=== PATIENT | male | born 1990 | race Caucasian/White ===

== ENCOUNTER 2018-11-07 09:17 | Emergency (ER) | payer BC ==
[~2018-11-07] VITALS: Ht 182.9 cm; Wt 102.1 kg
--- NOTE | 2018-11-07 09:48 | RAD ---
Chest, PA and Lateral: Technique: PA and lateral views of the chest were obtained. History: Chest pain. Comparison: None. Findings: The cardiomediastinal silhouette grossly appears unremarkable. Mild prominent bilateral perihilar interstitial lung markings probably mild bronchitis. No evidence of pleural effusion. IMPRESSION: Mild prominent bilateral perihilar interstitial lung markings probably mild bronchitis. Electronically signed by: Terry Avila MD (11/07/2018 9:45 AM) [place] [id number]
--- NOTE | 2018-11-07 09:55 | EKG ---
[facility] [address] [place] [address] Test Date: 2018-11-07 Test Time: 09:23:48 Pat Name: RADHA DUEÑAS Department: Room: Gender: M [address] [place]: : 1990 Requested By: BOZENA RANDHAWA Order Number: [id number] Reading MD: Measurements Intervals [place] Rate: 83 P: 34 [place]: 142 QRS: 6 QRSD: 96 T: 11 QT: 348 QTc: 409 Interpretive Statements SINUS RHYTHM INCOMPLETE RIGHT BUNDLE BRANCH BLOCK NO SPECIFIC ECG ABNORMALITIES RI6.01 No previous ECG available for comparison
--- NOTE | 2018-11-07 10:52 | PHYS DOC ---
Past Medical History Past Medical History: No Pertinent History, Cancer, Other Additional Past Medical Histor: NEUROBLASTOMA/CHEMO Past Surgical History: Other Additional Past Surgical Histo: BX ABDOMEN/NEUROBLASTOMA,PAC PLACEMENT/REMOVAL Additional Information: 1.5 PPD Alcohol Use: Heavy Additional Information: DRINKS 1/2 TO 1 PINT [place]ISKEY DAILY Drug Use: None, Other Social History Narrative: QUIT YEARS AGO Adult General Chief Complaint Chief Complaint: CHEST WALL PAIN HPI HPI Patient is a 28 year old male presented to ER today for evaluation of cough, chest pain with cough or taking a deep breath for about one month. Patient is a smoker. Patient had no history of heart problem, no history of diabetic, no history hypertension. Patient denies any recent travel or operation. Patient denies any history of blood clot disorder. Review of Systems Review of Systems Constitutional: Denies fever or chills [] Eyes: Denies change in visual acuity, redness, or eye pain [] HENT: Denies nasal congestion or sore throat [] Respiratory: positive for cough and shortness of breath [] Cardiovascular: No additional information not addressed in HPI [] GI: Denies abdominal pain, nausea, vomiting, bloody stools or diarrhea [] : Denies dysuria or hematuria [] Musculoskeletal: Denies back pain or joint pain [] Integument: Denies rash or skin lesions [] Neurologic: Denies headache, focal weakness or sensory changes [] Endocrine: Denies polyuria or polydipsia [] All other systems were reviewed and found to be within normal limits, except as documented in this note. Allergies Allergies Allergies Coded Allergies Type Severity Reaction Last Updated Verified No Known Drug Allergies 11/07/18 No Physical Exam Physical Exam Constitutional: Well developed, well nourished, no acute distress, non-toxic appearance. [] HENT: Normocephalic, atraumatic, bilateral external ears normal, oropharynx moist, no oral exudates, nose normal. [] Eyes: PERRLA, EOMI, conjunctiva normal, no discharge. [] Neck: Normal range of motion, no tenderness, supple, no stridor. [] Cardiovascular:Heart rate regular rhythm, no murmur [] Lungs & Thorax: Bilateral breath sounds clear to auscultation [] Abdomen: Bowel sounds normal, soft, no tenderness, no masses, no pulsatile masses. [] Skin: Warm, dry, no erythema, no rash. [] Back: No tenderness, no CVA tenderness. [] Extremities: No tenderness, no cyanosis, no clubbing, ROM intact, no edema. [] Neurologic: Alert and oriented X 3, normal motor function, normal sensory function, no focal deficits noted. [] Psychologic: Affect normal, judgement normal, mood normal. [] Current Patient Data Vital Signs Vital Signs Date Time Temp Pulse Resp B/P (MAP) Pulse Ox O2 Delivery O2 Flow Rate FiO2 11/07/18 11:12 74 16 148/92 (110) 98 Room Air 11/07/18 09:20 98.1 98.1 EKG EKG ekg rate of 83 bpm, no stemi, sinus rhythm[] Radiology/Procedures Radiology/Procedures [][facility] [address] [place] [address] IMAGING REPORT Signed PATIENT: RADHA DUEÑAS ACCOUNT: [id number] : 1990 LOCATION: ER AGE: 28 SEX: M EXAM STATUS: PRE ER ORD. PHYSICIAN: BOZENA RANDHAWA DO REASON: LEFT SIDED CHEST PAIN, COUGH X 1 MONTH PROCEDURE: CHEST PA & LATERAL Chest, PA and Lateral: Technique: PA and lateral views of the chest were obtained. History: Chest pain. Comparison: None. Findings: The cardiomediastinal silhouette grossly appears unremarkable. Mild prominent bilateral perihilar interstitial lung markings probably mild bronchitis. No evidence of pleural effusion. IMPRESSION: Mild prominent bilateral perihilar interstitial lung markings probably mild bronchitis. Electronically signed by: Terry Avila MD (11/07/2018 9:45 AM) [facility] DICTATED and SIGNED BY: TERRY AVILA MD DATE: 11/07/18 0945 Course & Med Decision Making Course & Med Decision Making Pertinent Labs and Imaging studies reviewed. (See chart for details) [] Dragon Disclaimer Dragon Disclaimer This electronic medical record was generated, in whole or in part, using a voice recognition dictation system. Departure Departure Impression: Primary Impression: Bronchitis Additional Impression: Chest pain, musculoskeletal Disposition: 01 HOME, SELF-CARE Condition: STABLE Referrals: NO PCP (PCP) follow up with your pcp as needed Patient Instructions: Bronchitis, Chest Wall Pain Scripts Prednisone (PREDNISONE) 20 Mg Tablet 1 TAB PO DAILY, #10 TAB Prov: BOZENA RANDHAWA DO 11/07/18 Problem Qualifiers BOZENA RANDHAWA DO Nov 07, 2018 10:52
[2018-11-07] MEDS ORDERED: PRED20TA PO (11:01)
[2018-11-07 11:12] VITALS: BP 148/92
== END 2018-11-07 11:18 | disposition home or self-care (01) ==
LOC: ER 09:17
DX: J40 Bronchitis, not specified as acute or chronic (principal); R07.89 Other chest pain; F17.200 Nicotine dependence, unspecified, uncomplicated; F10.20 Alcohol dependence, uncomplicated; Y90.9 Presence of alcohol in blood, level not specified
CPT/HCPCS: 71046; 93005; 99284

== ENCOUNTER 2018-11-21 09:28 | Emergency (ER) | payer BC ==
[~2018-11-21] VITALS: Ht 182.9 cm; Wt 102.1 kg
[~2018-11-21 09:28] MED LIST: PRED20TA PO
--- NOTE | 2018-11-21 10:30 | RAD ---
Chest, PA and Lateral: Technique: PA and lateral views of the chest were obtained. History: Cough, shortness of breath. Comparison: 11/07/2018. Findings: The heart and pulmonary vasculature appear within normal limits. The lungs are clear. The pleural margins are clear. Impression: No acute chest process is seen. Electronically signed by: Terry Avila MD (11/21/2018 10:27 AM) [facility]
--- NOTE | 2018-11-21 10:34 | PHYS DOC ---
Past Medical History Past Medical History: Cancer, Other Additional Past Medical Histor: NEUROBLASTOMA/CHEMO Past Surgical History: Other Additional Past Surgical Histo: BX ABDOMEN/NEUROBLASTOMA,PAC PLACEMENT/REMOVAL Alcohol Use: Heavy Drug Use: None, Other Adult General Chief Complaint Chief Complaint: RECTAL BLEED [facility] HPI Patient is a 28 year old male who presents with complaining of rectal bleeding and shortness of breath and back pain. Patient complaining of episodes of bright his blood after having an appointment for the last 3 days with marked rectal pain without abdominal pain, dizziness, see and vomiting, other bleeding. Patient denies history of rectal bleeding. Patient states he usually doesn't have constipation or diarrhea but for the last 3 days he had mild diarrhea. Patient also states he had cough and shortness of breath and was seen in this emergency room 2 weeks ago and treated with Medrol Dosepak without improvement of his condition. Patient complaining of chest pain, fever and chills, productive cough. Patient also complaining of chronic low back pain for more than 6 months and states he is getting worse with cough. Patient asking for work excuse. Review of Systems Review of Systems Constitutional: Denies fever or chills [] Eyes: Denies change in visual acuity, redness, or eye pain [] HENT: Denies nasal congestion or sore throat [] Respiratory: Reports cough and shortness of breath Cardiovascular: No additional information not addressed in HPI [] GI: Denies abdominal pain, nausea, vomiting, bloody stools or diarrhea [] : Denies dysuria or hematuria [] Musculoskeletal: Reports back pain, denies joint pain [] Integument: Denies rash or skin lesions [] Neurologic: Denies headache, focal weakness or sensory changes [] Endocrine: Denies polyuria or polydipsia [] All other systems were reviewed and found to be within normal limits, except as documented in this note. Allergies Allergies Allergies Coded Allergies Type Severity Reaction Last Updated Verified No Known Drug Allergies 11/07/18 No Physical Exam Physical Exam Constitutional: Well nourished, no acute distress, non-toxic appearance. [] HENT: Normocephalic, atraumatic, oropharynx moist. Eyes: PERRLA, EOMI, conjunctiva normal, no discharge. [] Neck: Normal range of motion, no tenderness, supple, no stridor. [] Cardiovascular:Heart rate regular rhythm, no murmur [] Lungs & Thorax: Bilateral breath sounds clear to auscultation [] Abdomen: Bowel sounds normal, soft, no tenderness, no masses, no pulsatile masses. 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 [] Back: No tenderness, no CVA tenderness. [] Extremities: No tenderness, no cyanosis, no clubbing, ROM intact, no edema. [] Neurologic: Alert and oriented X 3, normal motor function, normal sensory function, no focal deficits noted. [] Psychologic: Affect and chest, judgement normal, mood normal. [] Current Patient Data Vital Signs Vital Signs Date Time Temp Pulse Resp B/P (MAP) Pulse Ox O2 Delivery O2 Flow Rate FiO2 11/21/18 12:00 80 141/75 (97) 11/21/18 10:28 97.5 20 96 Room Air 97.5 Lab Values Laboratory Tests Test 11/21/18 10:02 11/21/18 10:30 11/21/18 10:50 White Blood Count 8.3 x10^3/uL (4.0-11.0) Red Blood Count 4.90 x10^6/uL (4.30-5.70) Hemoglobin 15.8 g/dL (13.0-17.5) Hematocrit 45.6 % (39.0-53.0) Mean Corpuscular Volume 93 fL (79-100) Mean Corpuscular Hemoglobin 32 pg (25-35) Mean Corpuscular Hemoglobin Concent 35 g/dL (31-37) Red Cell Distribution Width 13.2 % (11.5-14.5) Platelet Count 252 x10^3/uL (140-400) Sodium Level 138 mmol/L (136-145) Potassium Level 3.6 mmol/L (3.5-5.1) Chloride Level 101 mmol/L (98-107) Carbon Dioxide Level 25 mmol/L (21-32) Anion Gap 12 (6-14) Blood Urea Nitrogen 21 mg/dL (8-26) Creatinine 0.8 mg/dL (0.7-1.3) Estimated GFR (Cockcroft-Gault) 115.1 Glucose Level 94 mg/dL (70-99) Calcium Level 8.8 mg/dL (8.5-10.1) Magnesium Level 2.2 mg/dL (1.8-2.4) Total Bilirubin 0.4 mg/dL (0.2-1.0) Direct Bilirubin 0.2 mg/dL (0.0-0.2) Aspartate Amino Transferase (AST) 37 U/L (15-37) Alanine Aminotransferase (ALT) 94 U/L (16-63) H Alkaline Phosphatase 63 U/L (46-116) Total Protein 7.4 g/dL (6.4-8.2) Albumin 4.0 g/dL (3.4-5.0) Ethyl Alcohol Level 102 mg/dL (0-10) H Stool Occult Blood Negative (NEG) Laboratory Tests 11/21/18 10:02 Laboratory Tests 11/21/18 10:30 EKG EKG [] Radiology/Procedures Radiology/Procedures [] Course & Med Decision Making Course & Med Decision Making Pertinent Labs and Imaging studies reviewed. (See chart for details) Evaluation of patient in ER showed 28-year-old male patient presented to ER with complaining of chronic back pain and cough and rectal bleeding. Patient had unremarkable physical exam except for a smell of alcohol on breath. Patient later on complaining of suicidal ideation without any plan and PAT team was consulted and evaluated the patient. Patient did not have criteria for inpatient treatment and was advised to follow up with his outpatient mental health clinic. Treatment for bronchitis was given. Patient did not have rectal bleeding or abnormal anal exam. Dragon Disclaimer Dragon Disclaimer This electronic medical record was generated, in whole or in part, using a voice recognition dictation system. Departure Departure Impression: Primary Impression: Cough Additional Impressions: Bronchitis Alcohol abuse Suicidal thoughts Feared condition not demonstrated Disposition: HOME, SELF-CARE (at 1201) Condition: STABLE Referrals: NO PCP (PCP) Patient Instructions: Alcohol Problems, Bronchitis, Smoking Cessation, Tips For Success, Suicidal Feelings, How to Help Yourself Additional Instructions: Drink plenty of liquids Follow-up with your primary care physician in 3-5 days Return to ER if not getting better Follow[facility] days Scripts Azithromycin (ZITHROMAX) 250 Mg Tablet 1 PKG PO UD for infection, #1 PKG Prov: MJ LAGUNA MD 11/21/18 Benzonatate (TESSALON PERLE) 100 Mg Capsule 1 CAP PO TID for cough, #21 CAP Prov: MJ LAGUNA MD 11/21/18 Problem Qualifiers MJ LAGUNA MD Nov 21, 2018 10:34
[2018-11-21 10:48] LABS: HEMATOCRIT 45.6 % (39.0-53.0); HEMOGLOBIN 15.8 g/dL (13.0-17.5); RED BLOOD COUNT 4.9 x10^6/uL (4.30-5.70); RED CELL DISTRIBUTION WIDTH 13.2 % (11.5-14.5); WHITE BLOOD COUNT 8.3 x10^3/uL (4.0-11.0)
[2018-11-21 11:05] LABS: CALCIUM 8.8 mg/dL (8.5-10.1); CREATININE 0.8 mg/dL (0.7-1.3); GFR 115.1; POTASSIUM 3.6 mmol/L (3.5-5.1)
[2018-11-21 11:06] LABS: FECAL OB PT NEGATIVE (NEG)
[2018-11-21 11:10] LABS: DIRECT BILIRUBIN 0.2 mg/dL (0.0-0.2); MAGNESIUM 2.2 mg/dL (1.8-2.4); TOTAL BILIRUBIN 0.4 mg/dL (0.2-1.0); TOTAL PROTEIN 7.4 g/dL (6.4-8.2)
[2018-11-21 12:00] VITALS: BP 141/75
[2018-11-21] MEDS ORDERED: BENZ100C PO (12:03)
[2018-11-21] MEDS ORDERED: AZIT250T PO (12:03)
== END 2018-11-21 12:18 | disposition home or self-care (01) ==
LOC: ER 09:28
DX: J40 Bronchitis, not specified as acute or chronic (principal); R45.851 Suicidal ideations; F10.20 Alcohol dependence, uncomplicated; Y90.9 Presence of alcohol in blood, level not specified; K62.5 Hemorrhage of anus and rectum; M54.5 Low back pain; G89.29 Other chronic pain; R50.9 Fever, unspecified
CPT/HCPCS: 36415; 71046; 80048; 80076; 82274; 83735; 85027; 99285; G0480

== ENCOUNTER 2020-03-29 09:11 | Emergency (ER) | payer BC ==
[~2020-03-29] VITALS: Ht 177.8 cm; Wt 113.0 kg
[~2020-03-29 09:11] MED LIST changes: +AZIT250T PO; +BENZ100C PO
[2020-03-29 10:16] LABS: BILIRUBIN,URINE NEGATIVE (NEG); CLARITY,URINE CLEAR; COLOR,URINE YELLOW; NITRITE,URINE NEGATIVE (NEG); PROTEIN,URINE NEGATIVE (NEG-TRACE); UROBILINOGEN,URINE 0.2 mg/dL (0.2 mg/dL)
[2020-03-29 10:35] LABS: BACTERIA,URINE 0 /HPF (0-FEW); RBC,URINE 0 /HPF (0-2); WBC,URINE OCC /HPF (0-4)
[2020-03-29 11:17] LABS: BASO # 0.1 x10^3/uL (0.0-0.2); BASO % 1 % (0-3); EOS # 0.1 x10^3/uL (0.0-0.7); EOS % 1 % (0-3); HEMATOCRIT 42.1 % (39.0-53.0); HEMOGLOBIN 14.9 g/dL (13.0-17.5); LYMPH # 1.6 x10^3/uL (1.0-4.8); LYMPH % 19 % (24-48); MEAN CORPUSCULAR HEMOGLOBIN 32 pg (25-35); MEAN CORPUSCULAR HGB CONC 36 g/dL (31-37); MEAN CORPUSCULAR VOLUME 89 fL (79-100); MONO # 0.5 x10^3/uL (0.0-1.1); MONO % 6 % (0-9); NEUT # 6.1 x10^3/uL (1.8-7.7); NEUT % 73 % (31-73); PLATELET COUNT 275 x10^3/uL (140-400); RED BLOOD COUNT 4.71 x10^6/uL (4.30-5.70); RED CELL DISTRIBUTION WIDTH 13.1 % (11.5-14.5); WHITE BLOOD COUNT 8.3 x10^3/uL (4.0-11.0)
[2020-03-29 11:24] LABS: CREATININE 0.9 mg/dL (0.7-1.3); GFR 99.8; POTASSIUM 3.8 mmol/L (3.5-5.1)
[2020-03-29 11:29] LABS: ALBUMIN/GLOBULIN RATIO 1.2 (1.0-1.7); TOTAL BILIRUBIN 0.3 mg/dL (0.2-1.0); TOTAL PROTEIN 7.4 g/dL (6.4-8.2)
[2020-03-29] MEDS ORDERED: CONTRAST GIVEN. MC PRN (12:00)
--- NOTE | 2020-03-29 12:14 | RAD ---
EXAM: CT Abdomen and Pelvis with IV contrast INDICATION: Reason: abdominal pain / Spl. Instructions: IV OMNI 300 75 MLS / History: TECHNIQUE: Multi-detector row CT images were acquired from the lung bases through the abdomen and pelvis with the use of IV contrast. Sagittal and coronal images were acquired from the transaxial data. All CT scans performed at this facility utilize dose optimization techniques as appropriate to the exam, including the following: Automated exposure control and adjustment of the mA and/or KV according to patient size (this includes techniques or standardized protocols for targeted exams where dose is indication/reason for exam). IV CONTRAST: Administered ORAL CONTRAST: Not administered COMPARISON: None FINDINGS: LOWER CHEST: Unremarkable LIVER: Unremarkable BILIARY SYSTEM: Gallbladder is unremarkable. Bile ducts are not dilated. PANCREAS: Unremarkable SPLEEN: Unremarkable ADRENALS: Unremarkable KIDNEYS & URETERS: Multiple renal cortical cysts are present, largest in the superior pole right kidney measuring 1.7 cm, largest in the midpole left kidney measuring 1.8 cm. These require no additional imaging evaluation. BLADDER: Unremarkable REPRODUCTIVE ORGANS: Unremarkable GASTROINTESTINAL: There is mild diffuse spasm to the large bowel. Otherwise the stomach, small bowel, and colon are unremarkable. The appendix is normal. MESENTERY/PERITONEUM/RETROPERITONEUM: Unremarkable VASCULAR: Unremarkable LYMPH NODES: No adenopathy OSSEOUS & SOFT TISSUES: Unremarkable IMPRESSION: No acute pathology shown in the abdomen or pelvis on CT. Electronically signed by: Igor Mccullough MD (03/29/2020 12:11 PM) [id number]
[2020-03-29] MEDS ORDERED: IOHEXOL 300 MG/ML 100ML VIAL. IV ONE (12:30)
[2020-03-29] MEDS ORDERED: ONDANSETRON PF 4 MG/2 ML VIAL. IVP ONE (12:45)
[2020-03-29 13:30] VITALS: BP 151/75
--- NOTE | 2020-03-29 13:44 | PHYS DOC ---
Past Medical History Past Medical History: Cancer, Other Additional Past Medical Histor: NEUROBLASTOMA/CHEMO Past Surgical History: Other Additional Past Surgical Histo: BX ABDOMEN/NEUROBLASTOMA,PAC PLACEMENT/REMOVAL Smoking Status: Current Every Day Smoker Alcohol Use: Heavy Drug Use: None General Adult EDM: Chief Complaint: ABDOMINAL PAIN HPI: HPI: Patient is a 29 year old male presented to ER today for nausea vomiting, diarrhea, abdominal pain since yesterday. Patient is an alcoholic, he tried to stop drinking, he is taking Antabuse but he continued to drink a little bit. Patient denies fever, no bloody stool. Patient denies any chest pain, no trouble breathing. Review of Systems: Review of Systems: Constitutional: Denies fever or chills. [] Eyes: Denies change in visual acuity. [] HENT: Denies nasal congestion or sore throat. [] Respiratory: Denies cough or shortness of breath. [] Cardiovascular: Denies chest pain or edema. [] GI: Positive for abdominal pain, nausea vomiting, diarrhea : Denies dysuria. [] Musculoskeletal: Denies back pain or joint pain. [] Integument: Denies rash. [] Neurologic: Denies headache, focal weakness or sensory changes. [] Endocrine: Denies polyuria or polydipsia. [] Lymphatic: Denies swollen glands. [] Psychiatric: Denies depression or anxiety. No SI no HI. Heart Score: Risk Factors: Risk Factors: DM, Current or recent (<one month) smoker, HTN, HLP, family history of CAD, obesity. Risk Scores: Score 0 - 3: 2.5% MACE over next 6 weeks - Discharge Home Score 4 - 6: 20.3% MACE over next 6 weeks - Admit for Clinical Observation Score 7 - 10: 72.7% MACE over next 6 weeks - Early Invasive Strategies Current Medications: Current Medications Medications (Trade) Dose Ordered Sig/Don Start Time Stop Time Status Last Admin Dose Admin Info (CONTRAST GIVEN -- Rx MONITORING) 1 each PRN DAILY PRN 03/29/20 12:00 03/31/20 11:59 Iohexol (Omnipaque 300 Mg/ml) 75 ml 1X ONCE 03/29/20 12:30 03/29/20 12:31 DC 03/29/20 12:02 75 ML Ondansetron HCl (Zofran) 4 mg 1X ONCE 03/29/20 12:45 03/29/20 12:46 DC 03/29/20 12:45 4 MG Allergies: Allergies: Allergies Coded Allergies Type Severity Reaction Last Updated Verified No Known Drug Allergies 11/07/18 No Physical Exam: PE: Constitutional: Well developed, well nourished, no acute distress, non-toxic appearance. [] HENT: Normocephalic, atraumatic, bilateral external ears normal, oropharynx moist, no oral exudates, nose normal. [] Eyes: PERRLA, EOMI, conjunctiva normal, no discharge. [] Neck: Normal range of motion, no tenderness, supple, no stridor. [] Cardiovascular:Heart rate regular rhythm, no murmur [] Lungs & Thorax: Bilateral breath sounds clear to auscultation [] Abdomen: Bowel sounds normal, soft, no tenderness, no masses, no pulsatile masses. [] Skin: Warm, dry, no erythema, no rash. [] Back: No tenderness, no CVA tenderness. [] Extremities: No tenderness, no cyanosis, no clubbing, ROM intact, no edema. [] Neurologic: Alert and oriented X 3, normal motor function, normal sensory function, no focal deficits noted. [] Psychologic: Affect normal, judgement normal, mood normal. [] Current Patient Data: Labs: Laboratory Tests Test 03/29/20 09:41 03/29/20 11:06 Urine Collection Type Unknown Urine Color Yellow Urine Clarity Clear Urine pH 8.0 (<5.0-8.0) Urine Specific [place] 1.025 (1.000-1.030) Urine Protein Negative mg/dL (NEG-TRACE) Urine Glucose (UA) Negative mg/dL (NEG) Urine Ketones (Stick) Negative mg/dL (NEG) Urine Blood Negative (NEG) Urine Nitrite Negative (NEG) Urine Bilirubin Negative (NEG) Urine Urobilinogen Dipstick 0.2 mg/dL (0.2 mg/dL) Urine Leukocyte Esterase Negative (NEG) Urine RBC 0 /HPF (0-2) Urine WBC Occ /HPF (0-4) Urine Bacteria 0 /HPF (0-FEW) Urine Mucus Mod /LPF White Blood Count 8.3 x10^3/uL (4.0-11.0) Red Blood Count 4.71 x10^6/uL (4.30-5.70) Hemoglobin 14.9 g/dL (13.0-17.5) Hematocrit 42.1 % (39.0-53.0) Mean Corpuscular Volume 89 fL (79-100) Mean Corpuscular Hemoglobin 32 pg (25-35) Mean Corpuscular Hemoglobin Concent 36 g/dL (31-37) Red Cell Distribution Width 13.1 % (11.5-14.5) Platelet Count 275 x10^3/uL (140-400) Neutrophils (%) (Auto) 73 % (31-73) Lymphocytes (%) (Auto) 19 % (24-48) L Monocytes (%) (Auto) 6 % (0-9) Eosinophils (%) (Auto) 1 % (0-3) Basophils (%) (Auto) 1 % (0-3) Neutrophils # (Auto) 6.1 x10^3/uL (1.8-7.7) Lymphocytes # (Auto) 1.6 x10^3/uL (1.0-4.8) Monocytes # (Auto) 0.5 x10^3/uL (0.0-1.1) Eosinophils # (Auto) 0.1 x10^3/uL (0.0-0.7) Basophils # (Auto) 0.1 x10^3/uL (0.0-0.2) Sodium Level 141 mmol/L (136-145) Potassium Level 3.8 mmol/L (3.5-5.1) Chloride Level 103 mmol/L (98-107) Carbon Dioxide Level 26 mmol/L (21-32) Anion Gap 12 (6-14) Blood Urea Nitrogen 15 mg/dL (8-26) Creatinine 0.9 mg/dL (0.7-1.3) Estimated GFR (Cockcroft-Gault) 99.8 BUN/Creatinine Ratio 17 (6-20) Glucose Level 95 mg/dL (70-99) Calcium Level 9.0 mg/dL (8.5-10.1) Total Bilirubin 0.3 mg/dL (0.2-1.0) Aspartate Amino Transferase (AST) 45 U/L (15-37) H Alanine Aminotransferase (ALT) 110 U/L (16-63) H Alkaline Phosphatase 61 U/L (46-116) Total Protein 7.4 g/dL (6.4-8.2) Albumin 4.0 g/dL (3.4-5.0) Albumin/Globulin Ratio 1.2 (1.0-1.7) Lipase 97 U/L (73-393) Ethyl Alcohol Level 14 mg/dL (0-10) H Laboratory Tests 03/29/20 11:06 Laboratory Tests 03/29/20 11:06 Vital Signs: Vital Signs Date Time Temp Pulse Resp B/P (MAP) Pulse Ox O2 Delivery O2 Flow Rate FiO2 03/29/20 10:30 97.7 91 18 165/85 (111) 98 Room Air 97.7 EKG: EKG: [] Radiology/Procedures: Radiology/Procedures: [][facility] [address] [place] [address] IMAGING REPORT Signed PATIENT: RADHA DUEÑAS RACCOUNT: [id number] : 1990 LOCATION: ER AGE: 29 SEX: M EXAM STATUS: REG ER ORD. PHYSICIAN: BOZENA RANDHAWA DO REASON: abdominal pain PROCEDURE: CT ABD PELV W/ IV CONTRST ONLY EXAM: CT Abdomen and Pelvis with IV contrast INDICATION: Reason: abdominal pain / Spl. Instructions: IV OMNI 300 75 MLS / History: TECHNIQUE: Multi-detector row CT images were acquired from the lung bases through the abdomen and pelvis with the use of IV contrast. Sagittal and coronal images were acquired from the transaxial data. All CT scans performed at this facility utilize dose optimization techniques as appropriate to the exam, including the following: Automated exposure control and adjustment of the mA and/or KV according to patient size (this includes techniques or standardized protocols for targeted exams where dose is indication/reason for exam). IV CONTRAST: Administered ORAL CONTRAST: Not administered COMPARISON: None FINDINGS: LOWER CHEST: Unremarkable LIVER: Unremarkable BILIARY SYSTEM: Gallbladder is unremarkable. Bile ducts are not dilated. PANCREAS: Unremarkable SPLEEN: Unremarkable ADRENALS: Unremarkable KIDNEYS & URETERS: Multiple renal cortical cysts are present, largest in the superior pole right kidney measuring 1.7 cm, largest in the midpole left kidney measuring 1.8 cm. These require no additional imaging evaluation. BLADDER: Unremarkable REPRODUCTIVE ORGANS: Unremarkable GASTROINTESTINAL: There is mild diffuse spasm to the large bowel. Otherwise the stomach, small bowel, and colon are unremarkable. The appendix is normal. MESENTERY/PERITONEUM/RETROPERITONEUM: Unremarkable VASCULAR: Unremarkable LYMPH NODES: No adenopathy OSSEOUS & SOFT TISSUES: Unremarkable IMPRESSION: No acute pathology shown in the abdomen or pelvis on CT. Electronically signed by: Santa Mccullough MD (03/29/2020 12:11 PM) [id number] DICTATED and SIGNED BY: SANTA MCCULLOUGH MD DATE: 03/29/20 1211 Course & Med Decision Making: Course & Med Decision Making Pertinent Labs and Imaging studies reviewed. (See chart for details) Patient is a 29-year-old male who presented to ER with nausea vomiting diarrhea with abdominal pain. Patient is taking Antabuse to stop drinking but he still drinking alcohol, his symptoms today are related to Antabuse reaction to alcohol drinking. Patient was given IV fluid and nausea medication in ER, he feel much better. Patient will be discharged home. Vida Disclaimer: Vida Disclaimer: This electronic medical record was generated, in whole or in part, using a voice recognition dictation system. Departure Departure Impression: Primary Impression: Nausea & vomiting Disposition: 01 DC HOME SELF CARE/HOMELESS Condition: STABLE Referrals: UNKNOWN PCP NAME (PCP) follow up with your doctor as needed Patient Instructions: Nausea and Vomiting Scripts Ondansetron Hcl (ZOFRAN) 4 Mg Tablet 1 TAB PO Q8HRS PRN for NAUSEA, #20 TAB Prov: BOZENA RANDHAWA DO 03/29/20 BOZENA RANDHAWA DO Mar 29, 2020 13:44
[2020-03-29] MEDS ORDERED: ONDA4TAB7 PO (13:46)
== END 2020-03-29 14:07 | disposition home or self-care (01) ==
LOC: ER 09:11
DX: R11.2 Nausea with vomiting, unspecified (principal); R19.7 Diarrhea, unspecified; R10.9 Unspecified abdominal pain; F17.200 Nicotine dependence, unspecified, uncomplicated; Y90.0 Blood alcohol level of less than 20 mg/100 ml
CPT/HCPCS: 36415; 74177; 80053; 81001; 83690; 85025; 96374; 99285; G0480; J2405; Q9967

== ENCOUNTER 2021-10-04 10:07 | Emergency (ER) | payer BC ==
[~2021-10-04] VITALS: Ht 177.8 cm; Wt 113.7 kg
[~2021-10-04 10:07] MED LIST changes: +ONDA4TAB7 PO
[2021-10-04] MEDS ORDERED: IPRATRPIUM/ALBUTEROL 0.5/2.5MG 3 ML NEBU. NEB ONE (11:00)
--- NOTE | 2021-10-04 11:23 | RAD ---
XR CHEST 1V History: Shortness breath, chest pain. Comparison: 11/21/2018 Technique: Portable AP radiograph of the chest. Findings: The lungs are mildly hypoinflated. There are nonfocal bilateral airspace opacity. No pleural effusion or pneumothorax. Heart size is normal. There is bronchovascular crowding. Osseous structures and sof t tissues are unremarkable. Impression: 1. Clinical inflation with bronchovascular crowding and suggestion of hazy diffuse opacity without o bscuration of margins. This may be due to low lung volumes however superimposed diffuse infiltrate or edema are not excluded. Electronically signed by: Grant Bourne MD (10/04/2021 11:21 AM) [id number]
[2021-10-04 11:24] LABS: BASO # 0.1 x10^3/uL (0.0-0.2); BASO % 3 % (0-3); EOS # 0.2 x10^3/uL (0.0-0.7); EOS % 3 % (0-3); HEMATOCRIT 44.1 % (39.0-53.0); HEMOGLOBIN 15.3 g/dL (13.0-17.5); LYMPH # 2.3 x10^3/uL (1.0-4.8); LYMPH % 44 % (24-48); MEAN CORPUSCULAR HEMOGLOBIN 31 pg (25-35); MEAN CORPUSCULAR HGB CONC 35 g/dL (31-37); MEAN CORPUSCULAR VOLUME 89 fL (79-100); MONO # 0.4 x10^3/uL (0.0-1.1); MONO % 8 % (0-9); NEUT # 2.2 x10^3/uL (1.8-7.7); NEUT % 42 % (31-73); PLATELET COUNT 295 x10^3/uL (140-400); RED BLOOD COUNT 4.97 x10^6/uL (4.30-5.70); RED CELL DISTRIBUTION WIDTH 13.2 % (11.5-14.5); WHITE BLOOD COUNT 5.2 x10^3/uL (4.0-11.0)
--- NOTE | 2021-10-04 11:27 | PHYS DOC ---
Past Medical History Past Medical History: Cancer, Other Additional Past Medical Histor: NEUROBLASTOMA/CHEMO Past Surgical History: Other Additional Past Surgical Histo: BX ABDOMEN/NEUROBLASTOMA,PAC PLACEMENT/REMOVAL Smoking Status: Current Every Day Smoker Alcohol Use: Occasionally Drug Use: None General Adult EDM: Chief Complaint: DYSPNEA/RESPIRATORY DISTRESS HPI: HPI: Patient is a 31-year-old male presents to the emergency department complaining of slow onset of shortness of breath and left flank pain that started approximately an hour prior to arrival to the emergency department. Patient denies cough, chest or nasal congestion. Patient does complain of chest pain on the left side that he rates a 2 out of 10. Patient denies any aggravating or relieving factors of his pain. Patient denies nausea, vomiting, diarrhea, denies abdominal discomfort, denies dizziness, denies syncopal or near syncopal episodes, denies headache. Patient states he is an alcoholic, he drinks whiskey every day until he passes out. Patient states he has been on Antabuse in the past but does not like to take Antabuse because he cannot drink as much alcohol. Patient states he does smoke a pack and a half or more cigarettes per day. States he does smoke marijuana on occasion, denies other illicit drug use, denies history of IV drug abuse, states he did smoke meth in the past and has not used any illicit drugs other than marijuana for the past 4 years. Patient denies other physical complaints or physical concerns. Review of Systems: Review of Systems: 14 body systems of review of systems have been reviewed. See HPI for pertinent positives and negative responses, otherwise all other systems are negative, nonpertinent or noncontributory. Constitutional: Negative except as outlined in HPI above. Skin: Negative except as outlined in HPI above. Eyes: Negative except as outlined in HPI above. HENT: Negative except as outlined in HPI above. Respiratory: Negative except as outlined in HPI above. Cardiovascular: Negative except as outlined in HPI above. GI: Negative except as outlined in HPI above. : Negative except as outlined in HPI above. Musculoskeletal: Negative except as outlined in HPI above. Integument: Negative except as outlined in HPI above. Neurologic: Negative except as outlined in HPI above. Endocrine: Negative except as outlined in HPI above. Lymphatic: Negative except as outlined in HPI above. Psychiatric: Negative except as outlined in HPI above. Heart Score: C/O Chest Pain: Yes HEART Score for Chest Pain: HEART Score for Chest Pain Response (Comments) Value History Slighlty/Non-Suspicious 0 ECG Normal 0 Age < 45 0 Risk Factors 1 or 2 Risk Factors 1 Troponin < Normal Limit 0 Total 1 Risk Factors: Risk Factors: DM, Current or recent (<one month) smoker, HTN, HLP, family history of CAD, obesity. Risk Scores: Score 0 - 3: 2.5% MACE over next 6 weeks - Discharge Home Score 4 - 6: 20.3% MACE over next 6 weeks - Admit for Clinical Observation Score 7 - 10: 72.7% MACE over next 6 weeks - Early Invasive Strategies Current Medications: Current Medications Medications (Trade) Dose Ordered Sig/Don Start Time Stop Time Status Last Admin Dose Admin Albuterol/ Ipratropium (Duoneb) 3 ml 1X ONCE 10/04/21 11:00 10/04/21 11:01 DC 10/04/21 11:06 3 ML Allergies: Allergies: Allergies Coded Allergies Type Severity Reaction Last Updated Verified No Known Drug Allergies 11/07/18 No Physical Exam: PE: Constitutional: Well developed, well nourished, no acute distress, non-toxic appearance. 31-year-old male in no apparent distress. There is a smell of EtOH about patient during physical examination. Patient is clinically sober. HENT: Normocephalic, atraumatic. Eyes: Conjunctiva normal, no discharge. Neck: Normal range of motion, no stridor. Cardiovascular: No cyanosis appreciated, distal cap refill less than 2 seconds. Heart sounds are S1, S2, regular rate and rhythm to auscultation, heart rate 98 Lungs & Thorax: Patient is in no respiratory distress, normal work of breathing, bronchovesicular lung sounds all lung connelly. Abdomen: Nontender, no abnormalities noted. Pain to palpation along left flank abdominal structures, there is no McBurney's point tenderness, rebound tenderness, Quiroz sign, psoas sign. Normal skin color of abdomen. Bowel sounds normal all 4 quadrants. Skin: Warm, dry, no erythema, no rash. Back: No tenderness, no deformities. There is left-sided CVA tenderness. Extremities: No tenderness, no cyanosis, no clubbing, ROM intact, no edema. Neurologic: Alert and oriented X 3, normal motor function, normal sensory function, no focal deficits noted. Psychologic: Affect normal, judgement normal, mood normal. Current Patient Data: Vital Signs: Vital Signs Date Time Temp Pulse Resp B/P (MAP) Pulse Ox O2 Delivery O2 Flow Rate FiO2 10/04/21 11:10 96 Room Air 10/04/21 10:12 97.7 102 18 154/78 (103) 97.7 EKG: EKG: EKG performed at 1120 by ED nursing staff shows a normal sinus rhythm without ectopy, heart rate 90 bpm, OH interval point 134, QTc interval 0.422, no acute STEMI, no ACS, no acute ischemia appreciated, EKG interpreted by ED attending physician Dr. Hutchins. Radiology/Procedures: Radiology/Procedures: REASON: Short of breath, chest pain PROCEDURE: PORTABLE CHEST 1V XR CHEST 1V History: Shortness breath, chest pain. Comparison: 11/21/2018 Technique: Portable AP radiograph of the chest. Findings: The lungs are mildly hypoinflated. There are nonfocal bilateral airspace opacity. No pleural effusion or pneumothorax. Heart size is normal. There is bronchovascular crowding. Osseous structures and soft tissues are unremarkable. Impression: 1. Clinical inflation with bronchovascular crowding and suggestion of hazy diffuse opacity without obscuration of margins. This may be due to low lung volumes however superimposed diffuse infiltrate or edema are not excluded. Electronically signed by: Grant Bourne MD (10/04/2021 11:21 AM) [id number] REASON: Left flank pain without hematuria or evidence of urinary tract infection PROCEDURE: CT ABD PELV W/ IV CONTRST ONLY Exam: CT abdomen/pelvis with intravenous contrast Indication: Left flank pain, hematuria or evidence of UTI Comparison: CT abdomen pelvis 03/29/2020 Technique: Helical CT imaging performed of the abdomen and pelvis after the intravenous administration of 75 mL Omnipaque 300 contrast. Sagittal and coronal reformats were obtained. One or more of the following individualized dose reduction techniques were utilized for this examination: 1. Automated exposure control 2. Adjustment of the mA and/or kV according to patient size 3. Use of iterative reconstruction technique. Findings: Lower chest: Lung bases are clear. The heart is normal in size. Liver: Normal. No focal liver lesion. Gallbladder/Biliary Tree: Normal. Pancreas: Normal. Spleen: Normal. Adrenal Glands: Normal. Kidneys/Ureters/Bladder: Kidneys are normal in size and enhance symmetrically. No hydronephrosis. There are bilateral simple renal cysts, largest on the right measuring 1.8 cm. The largest on the left measuring 1.0 cm. There are additional subcentimeter hypodensities bilaterally that are too small to characterize but likely simple cysts. Ureters and bladder are normal. Reproductive Organs: Prostate gland is normal. Stomach, small bowel, and colon: The stomach is normal. There is no small bowel obstruction. The appendix is normal. The colon is normal. Vasculature: No aortic aneurysm. Lymph Nodes: No lymphadenopathy. Peritoneum and retroperitoneum: No free fluid or free air. Bones: No acute osseous abnormality. Miscellaneous: None IMPRESSION: 1. No hydronephrosis. 2. Multiple bilateral simple renal cysts and additional subcentimeter hypodensities in the kidneys that are too small to characterize but likely also simple cysts. Electronically signed by: Monica Gallardo MD (10/04/2021 12:39 PM) [id number] Course & Med Decision Making: Course & Med Decision Making Pertinent Labs and Imaging studies reviewed. (See chart for details) 31-year-old male, vital signs reviewed, presents emergency department concerning shortness of breath, left flank pain, chest pain. Physical examination pain to the left abdominal flank, bronchovesicular lung sounds, etoh. Patient does stat e he is a daily drinker, will order CBC, CMP, EKG, portable chest x-ray, high- sensitivity troponin I, urine drug screen, serum alcohol level, rapid COVID/flu testing, D-dimer, lipase, urinalysis assay. Albuterol/ipratropium bromide nebulizer treatment. The patient's urine is not infected, urine drug screen did reveal alcohol and marijuana only as patient admits to, pulmonary embolus is low likelihood as the patient's D-dimer is within normal limits, rapid COVID flu testing is negative, will order CT abdomen pelvis with IV contrast to evaluate left flank pain, the patient's urine is negative and without hematuria, this is low likelihood of renal colic. The patient's chest x-ray read by house radiologist as Clinical inflation with bronchovascular crowding and suggestion of hazy diffuse opacity without obscuration of margins. Suspicious for underlying bronchial disease pattern such as pneumonia, the patient's lung sounds did improve after breathing treatment, the patient no longer complains of shortness of breath, the patient's CBC is unremarkable and nonsuggestive of infectious process, also related to patient's history of 1-1/2 packs a day cigarette smoking for several years, will start on azithromycin regimen. The patient's CT abdomen pelvis with IV contrast is nonconcerning. Upon reevaluation of the patient, patient states he feels much better now and wishes to go home, patient requires a work excuse. Discussed with patient options for drinking cessation and smoking cessation, patient states he is not interested in stopping smoking however he does have outpatient resources for quitting drinking. Patient states that he does not want any further help through the emergency department and wishes to pursue help with drinking alcohol on an outpatient basis. Discussed with patient antibiotic regimen of azithromycin, will send to pharmacy of choice. Patient again is asking for work excuse. Patient gives verbal understanding of and is amenable to ED discharge planning. Discussed with the patient all findings and diagnostic testing as well as the need to follow-up with their primary care provider for further evaluation and treatment or return to the ED if any new or worsening symptoms. Strict return precautions were also discussed at length, the patient voiced understanding and agreement with the discharge planning. The patient was nontoxic in appearance, in no apparent distress, and hemodynamically stable at the time of disposition. DragBiOM Disclaimer: DragBiOM Disclaimer: This electronic medical record was generated, in whole or in part, using a voice recognition dictation system. Departure Departure Impression: Primary Impression: Chest pain of unknown etiology Additional Impressions: Flank pain Alcoholism Cigarette smoker Shortness of breath Disposition: 01 HOME / SELF CARE / HOMELESS Condition: GOOD Referrals: UNKNOWN PCP NAME (PCP) Patient Instructions: Alcohol Problems, Alcohol and Drug Addiction, Finding Treatment, Chest Pain (Nonspecific), Flank Pain, Smoking Cessation Additional Instructions: You were seen today in the emergency department for chest pain, left flank pain, shortness of breath, your lab work, chest x-ray, and CT of abdomen and pelvis were unremarkable and did not show any concerning findings that would warrant immediate admission to the hospital or immediate attention by a healthcare specialist. Please follow-up with your primary care physician for ongoing management of your aches and pains. Please follow-up with your outpatient resources to quit drinking. Please consider stopping smoking cigarettes. Thank you for visiting our Emergency Department. It was a pleasure taking care of you today in the emergency department and we appreciate you trusting us with your care. If any additional problems come up don't hesitate to return to visit us. Please follow up with your primary care provider so they can plan additional care if needed and know about the problem that you had. If symptoms worsen come back to the Emergency Department. Any concerning symptoms that start such as chest pain, shortness of air, weakness or numbness on one side of the body, running high fevers or any other concerning symptoms return to the ER. [facility] [address] [place] [address] [facility] [address] [place] [address] [facility] [address] [facility] [place] [address] [facility] [address] [place] [address] [facility] [address] [place] [address] [facility] [address] [place] [address] [facility] [address] [place] [address] [facility] [address] [place] [address] [facility] [address] [place] [address] [facility] [address] [place] [address] Scripts Azithromycin (AZITHROMYCIN TABLET) 250 Mg Tablet 1 PKG PO UD for 5 Days, #6 TAB 0 Refills 2 the first day followed by 1 for days 2-5 Prov: TERESA JAMESON APRN 10/04/21 TERESA JAMESON APRN October 04, 2021 11:27
[2021-10-04 11:35] LABS: AMPHETAMINE/METHAMPHETAMINE NEG (NEG); BACTERIA,URINE 0 /HPF (0-FEW); BARBITURATES NEG (NEG); BENZODIAZEPINES NEG (NEG); CANNABINOIDS POS (NEG); COCAINE NEG (NEG); METHADONE NEG (NEG); OPIATES NEG (NEG); PHENCYCLIDINE NEG (NEG); RBC,URINE 0 /HPF (0-2); WBC,URINE 0 /HPF (0-4)
[2021-10-04 11:45] LABS: CALCIUM 9.1 mg/dL (8.5-10.1); CREATININE 1.1 mg/dL (0.7-1.3); GFR 78.1; POTASSIUM 3.6 mmol/L (3.5-5.1)
[2021-10-04 11:51] LABS: ALBUMIN 4.1 g/dL (3.4-5.0); ALBUMIN/GLOBULIN RATIO 1.3 (1.0-1.7); TOTAL BILIRUBIN 0.4 mg/dL (0.2-1.0); TOTAL PROTEIN 7.3 g/dL (6.4-8.2)
[2021-10-04] MEDS ORDERED: IOHEXOL 300 MG/ML 100ML VIAL. IV ONE (12:00)
[2021-10-04 12:19] LABS: INFLUENZA A PATIENT NEGATIVE (NEGATIVE); INFLUENZA B PATIENT NEGATIVE (NEGATIVE)
--- NOTE | 2021-10-04 12:42 | RAD ---
Exam: CT abdomen/pelvis with intravenous contrast Indication: Left flank pain, hematuria or evidence of UTI Comparison: CT abdomen pelvis 03/29/2020 Technique: Helical CT imaging performed of the abdomen and pelvis after the intravenous administratio n of 75 mL Omnipaque 300 contrast. Sagittal and coronal reformats were obtained. One or more of the following individualized dose reduction techniques were utilized for this examinat ion: 1. Automated exposure control 2. Adjustment of the mA and/or kV according to patient size 3. Use of iterative reconstruction technique. Findings: Lower chest: Lung bases are clear. The heart is normal in size. Liver: Normal. No focal liver lesion. Gallbladder/Biliary Tree: Normal. Pancreas: Normal. Spleen: Normal. Adrenal Glands: Normal. Kidneys/Ureters/Bladder: Kidneys are normal in size and enhance symmetrically. No hydronephrosis. The re are bilateral simple renal cysts, largest on the right measuring 1.8 cm. The largest on the left m easuring 1.0 cm. There are additional subcentimeter hypodensities bilaterally that are too small to c haracterize but likely simple cysts. Ureters and bladder are normal. Reproductive Organs: Prostate gland is normal. Stomach, small bowel, and colon: The stomach is normal. There is no small bowel obstruction. The appe ndix is normal. The colon is normal. Vasculature: No aortic aneurysm. Lymph Nodes: No lymphadenopathy. Peritoneum and retroperitoneum: No free fluid or free air. Bones: No acute osseous abnormality. Miscellaneous: None IMPRESSION: 1. No hydronephrosis. 2. Multiple bilateral simple renal cysts and additional subcentimeter hypodensities in the kidneys t hat are too small to characterize but likely also simple cysts. Electronically signed by: Monica Gallardo MD (10/04/2021 12:39 PM) [id number]
[2021-10-04 13:32] VITALS: BP 146/72
--- NOTE | 2021-10-04 19:05 | EKG ---
[facility] [address] [place] [address] Test Date: 2021-10-04 Test Time: 11:20:44 Pat Name: RADHA DUEÑAS Department: Room: Gender: M Email Marketer: : 1990 Requested By: TERESA JAMESON Order Number: [id number] Reading MD: Roger Medina MD Measurements Intervals [place] Rate: 90 P: 49 ME: 134 QRS: 7 QRSD: 94 T: 19 QT: 342 QTc: 422 Interpretive Statements SINUS RHYTHM Electronically Signed On 10-10-2021 9:22:45 CDT by Roger Medina MD
[2021-10-04] MEDS ORDERED: AZIT250T6 PO (19:51)
== END 2021-10-04 13:25 | disposition home or self-care (01) ==
LOC: ER 10:07
DX: R07.89 Other chest pain (principal); R06.02 Shortness of breath; Z20.822 Contact with and (suspected) exposure to COVID-19; R10.9 Unspecified abdominal pain; F17.210 Nicotine dependence, cigarettes, uncomplicated
CPT/HCPCS: 36415; 71045; 74177; 80053; 80307; 81001; 83690; 84484; 85025; 85379; 87428; 93005; 94640; 99285; G0480; Q9967